=== PATIENT | female | born 1960 | race Caucasian/White ===

== ENCOUNTER → 2025-07-01 14:47 | Outpatient (REF) | payer OTHER, SELFPAY ==
[2025-07-01 16:31] LABS: Hematocrit 42.1 % (37.0-47.0); Hemoglobin 13.7 g/dL (12.0-16.0); Mean Corp Hgb Conc. 32.5 g/dL (33.0-37.0); Mean Corpuscular Volume 93.8 fL (81.0-99.0); Nucleated Red Blood Cells % 0 %; Platelet Count 241 10^3/uL (130-400); Red Cell Dist. Width 12.2 % (11.5-14.5)
[2025-07-01 16:53] LABS: Blood Urea Nitrogen 17 mg/dl (7-17); Calcium 9.5 mg/dl (8.4-10.2); Carbon Dioxide 32 mmol/L (22-30); Chloride 99 mmol/L (98-107); Glucose 99 mg/dl (70-99); Potassium 4.9 mmol/L (3.5-5.1); Sodium 138 mmol/L (135-145); eGFR > 60.00
== END ==
LOC: REG 14:47
PROVIDERS: ATTENDING PHYSICIAN Orthopaedic Surgery
DX: Z01.818 Encounter for other preprocedural examination (principal)
CPT/HCPCS: 36415; 80048; 85025; 93005

== ENCOUNTER 2025-08-06 17:09 | Inpatient (IN) | payer OTHER, SELFPAY ==
[2025-08-05] VITALS (22 sets, daily range): BP systolic 68–128; BP diastolic 42–95; BMI 24.0; BMI 23.1
--- NOTE | 2025-08-05 18:46 | ED.GENMED ---
History of Present Illness
General
Chief Complaint: Blood Pressure Problem
Time Seen by Provider: 08/05/25 18:34
History of Present Illness
History of Present Illness:
65-year-old female presents to the emergency department due to severe symptomatic orthostatic hypotension after undergoing a left total hip replacement at the outpatient surgical center this morning. She underwent 6+ hours of PACU observation with
repeated orthostasis and near syncope despite copious IV fluids (documentation does not clearly indicate amount of fluids but patient states that it was approximately 5 L). Her blood pressures are as low as 60 systolic when upright but improved
when supine. She does not take any blood pressure medication at home. She does indicate to me that she has some symptoms similar to this but not as severe on a daily basis where she gets positional lightheadedness after eating breakfast in the
morning but has never been evaluated for this. Denies any chest pain or shortness of breath.
Past History
Past History
ED Past Medical History: Other (migraines )
Review of Systems
Review of Systems
Allergies reviewed?: Yes
All Other Systems: ROS reviewed and negative except as documented in HPI and ROS
Phy Exam
Physical Exam
Physical Exam:
GEN: Pale appearing, pale, mildly diaphoretic
HEENT: Oral mucosa moist, no scleral icterus
Cardiac: Regular rate
Lung: No respiratory distress, no tachypnea
MSK: No gross deformity or injuries
Skin: Pale and diaphoretic
Neuro: AO x3, moves all extremities freely
Psych: Calm, cooperative
Course
Orders/Labs/Results
Orders:
Orders
08/05/25 Dinner
Regular
At Your Request: Limited Participation
08/05/25 18:46
Complete Blood Count/No Diff Urgent
Comprehensive Metabolic Panel Urgent
Venous Blood Gas Urgent
%Oxygen/Room Air: 99
08/05/25 19:19
Electrocardiogram (*1) Urgent
Reason for Study: QTc Monitoring
08/05/25 21:06
Admit/Transfer Patient As Directed
Co-Sign Provider:
Level of Care: Observation services
Assign to:: Telemetry
Physician / Group: devika
Diagnosis: orthostasis
Reason for Telemetry: Arrhythmia
Date to Stop Telemetry: 08/08/25
Time to Stop Telemetry: 11:00
PRN Pain Medication Management As Directed
May give lesser potent ordered pain med per pt: Yes
preference::
Protocol:: Medication orders for pain may be administered in a
manner that supports deferring to patient preference
when the pt is:
- Requesting an ordered lesser potent pain medication.
Least to most potent pain medications are defined
as: acetaminophen < NSAID < tramadol < opioids
(morphine, oxycodone, hydromorphone).
- Requesting a lesser dose of the same medication IF
ORDERED.
- Requesting a less intrusive route of administration
if both routes are prescribed by the provider (PO <
IV).
08/05/25 21:07
Code Status As Directed
Resuscitation Status: Full Code
08/05/25 21:10
Oxycodone [Roxicodone] 5 mg PO Q4HPRN PRN
08/05/25 22:00
Celecoxib [Celebrex] 100 mg PO BID
Dexamethasone [Decadron] 4 mg PO Q12
08/05/25 22:58
Midodrine [ProAmatine] 5 mg PO Q8HPRN PRN
08/05/25 22:58
Activity As Directed
Activity Level: As Tolerated
Vital Signs As Directed
Frequency: Per unit guidelines
DX Deep Vein Thrombosis Video Routine
08/06/25 00:00
Acetaminophen [Tylenol] 1,000 mg PO Q6
08/06/25 06:00
Complete Blood Count/With Diff IN AM
Comprehensive Metabolic Panel IN AM
08/06/25 08:00
Aspirin 325 mg PO DAILY
Heparin 5,000 units SC Q12
08/08/25 11:00
DC Protocol for Telemetry ONCE
Abnormal Lab Results
08/05/25
18:46
WBC 11.2 H 10^3/uL
(4.8-10.8)
RBC 3.99 L 10^6/uL
(4.20-5.40)
MCH 31.1 H pg
(27.0-31.0)
VBG pO2 67 H mmHg
(30-50)
VBG HCO3 21.6 L mmol/L
(22-27)
Sodium 129 L mmol/L
(135-145)
Glucose 158 H mg/dl
(70-99)
Calcium 7.9 L mg/dl
(8.4-10.2)
08/05/25 18:46
08/05/25 18:46
Vital Signs
Initial and Last Documented VS:
Initial Vital Signs
Temp Pulse Resp BP Pulse Ox
99.3 F 80 18 111/83 99
08/05/25 17:57 08/05/25 17:57 08/05/25 17:57 08/05/25 17:57 08/05/25 17:57
Last Documented Vital Signs
Temp Pulse Resp BP Pulse Ox
99.2 F 100 18 119/71 96
08/05/25 23:15 08/05/25 23:15 08/05/25 23:15 08/05/25 23:15 08/05/25 23:15
MDM/Problems Addressed
MDM/Problems Addressed:
Patient remains markedly orthostatic despite copious IV fluids. As she is normotensive when supine there is no indication for vasopressors. Will admit for overnight observation, hopeful that spinal anesthesia effects will wear off however patient
may have some degree of underlying orthostasis that is being exacerbated by this
*Pulse Oximetry
SaO2: 97
Oxygen Mode of Delivery: Room air
Patient hypoxic: no
*Critical Care Note
Total Time (30-74mins, 75-104mins- exclusive of procedures): Not Applicable
ED Attending Note
-
Portions of this chart may have been created with voice recognition software.� Occasional wrong word or��sound alike� substitutions may have occurred due to the inherent limitations of voice recognition software.
Discharge Plan
Departure
Patient Disposition: Admit
Date of Disposition: 08/05/25
Time of Disposition: 20:38
Admit to: Med/Surg
Presentation/result/management discussed w/ accepting MD/DO: Hospitalist
Discharge Problem:
Orthostasis
Interventions
Interventions:
*Risk Screen - Suicide Last Done: 08/05/25 23:08
*General Assessment Last Done: 08/05/25 18:43
*Neglect/Abuse Screening Last Done: 08/05/25 18:43
*ED- Fall Risk Assessment Last Done: 08/05/25 22:00
*ED COVID-19 Vaccine History Last Done: 08/05/25 23:08
*ED Influenza Vaccine History Last Done: 08/05/25 18:43
*Nursing Disposition Last Done: 08/05/25 22:57
ED- Cardiac Assessment Last Done: 08/05/25 18:43
ED- Neurological Assessment Last Done: 08/05/25 18:43
ED- Pulmonary Assessment Last Done: 08/05/25 18:43
Discharge Date and Time
Discharge Date/Time: 08/05/25 22:58
[2025-08-05 18:53] LABS: Hematocrit 37.1 % (37.0-47.0); Hemoglobin 12.4 g/dL (12.0-16.0); Mean Corp Hgb Conc. 33.4 g/dL (33.0-37.0); Mean Corpuscular Volume 93.0 fL (81.0-99.0); Platelet Count 153 10^3/uL (130-400); Red Cell Dist. Width 12.0 % (11.5-14.5)
[2025-08-05 18:55] LABS: Venous Blood Gas B.E. -3.9 mmol/L (-4 to +4); Venous Blood Gas O2 Sat % 93.9 %
[2025-08-05 19:11] LABS: ALT (SGPT) 22 U/L (0-35); AST (SGOT) 34 U/L (14-36); Albumin 3.9 g/dl (3.5-5.0); Alkaline Phosphatase 60 U/L (38-126); Blood Urea Nitrogen 11 mg/dl (7-17); Calcium 7.9 mg/dl (8.4-10.2); Carbon Dioxide 22 mmol/L (22-30); Chloride 100 mmol/L (98-107); Estimated Creatinine Clearance 90 ml/min; Glucose 158 mg/dl (70-99); Potassium 4.0 mmol/L (3.5-5.1); Sodium 129 mmol/L (135-145); Total Protein 6.4 g/dl (6.3-8.2); eGFR > 60.00
--- NOTE | 2025-08-05 20:50 | PTCARENOTE ---
Patient received from the ED and pulled over to the bed. AAOx3, vitals stable, and complains of left hip pain being a 2 at the surgical site. Oriented to room and call kumar within reach.
--- NOTE | 2025-08-05 21:11 | HPS.HSE ---
Family Physician
-
Family Physician: * NONE
Chief Complaint
-
orthostasis
History of Present Illness
65-year-old female past medical history of migraines, restless leg syndrome, presenting for low blood pressure. She underwent left total hip replacement outpatient surgical center this morning. In the PACU she had severe orthostasis with near
syncope despite copious amount of IV fluids approximately 5 L. Blood pressures lowest 60s when upright and improved when supine. She does not take any blood pressure medications at home. She never had significant anesthesia before.
She does have a history of occasional near syncope and similar symptoms with activity although very mild that she has had for over 20 years on occasion.
She has chronic abdominal pain in her left lower quadrant that is worse when she lies down. She also has chronic aching in her chest worse with exertion. She has no symptoms currently. She has never seek care for the symptoms.
She does not smoke or drink alcohol.
Medical History
Past Medical History
Past Medical History: Reports Other (migraines, restless leg syndrome,)
Past Surgical History: Reports Other (Ganglion cyst removal, left hip surgery )
Social History
Tobacco: Non-smoker
Alcohol: None
Drug: None
Family History
Family History: Not pertinent
Allergies / Home Medications
Allergies reflects when Allergies were last updated in [employer].
Home Medications with original date entered in [employer]
Allergy/Medication List:
Allergies
Allergy/AdvReac Type Severity Reaction Status Date / Time
No Known Allergies Allergy Verified 08/05/25 18:45
Home Medications
ondansetron 4 mg disintegrating tablet 4 mg PO PRN PRN migraines 04/18/23
Review of Systems
-
History Source: Patient
A 12 point ROS was completed and negative except as noted: Yes
Constitutional: Reports No Symptoms
EENT: Reports No Symptoms
Respiratory: Reports No Symptoms
Cardiac: Reports No Symptoms
Abdomen/GI: Reports No Symptoms
: Reports No Symptoms
Musculoskeletal: Reports See HPI
Skin: Reports No Symptoms
Neurological: Reports No Symptoms
Endocrine: Reports No Symptoms
Hematologic/Lymphatic: Reports No Symptoms
Psych: Reports No Symptoms
Physical Exam
Vital Signs
Vital Signs
Temp Pulse Resp BP Pulse Ox
99.3 F 74 19 119/78 97
08/05/25 17:57 08/05/25 20:45 08/05/25 20:45 08/05/25 20:45 08/05/25 20:15
Physical Exam
General: Well Developed, Well Nourished and No Apparent Distress
HEENT: NormoCephalic, Moist mucous membranes and Atraumatic
Respiratory: Clear
Cardiac: S1/S2 and Regular Rhythm; No Murmur or Rub
GI: Soft, Non Tender, Non Distended and Normal Bowel Sounds; No Organomegaly
Rectal: Deferred by Provider
Musculoskeletal: No Clubbing, No Cyanosis and No Edema
Skin: No Rash
Neuro: Nonfocal/grossly intact
Laboratory Results
-
08/05/25 18:46
08/05/25 18:46
Laboratory Results
Total Bilirubin 0.8 mg/dl (0.2-1.3) 08/05/25 18:46
AST 34 U/L (14-36) 08/05/25 18:46
ALT 22 U/L (0-35) 08/05/25 18:46
Alkaline Phosphatase 60 U/L (38-126) 08/05/25 18:46
Data Reviewed
-
Lab Data: Labs Reviewed by me
Old Records: Reviewed
Impression/Plan
-
IMPRESSION:
PLAN:
# Severe orthostasis after anesthesia for left hip total replacement today
-Received close to 5 L of fluids in the surgical center prior to arrival today
-EKG shows normal sinus rhythm,
- Blood pressure 120s while supine and drops to 60s with sitting up
- As needed midodrine
Left total hip replacement today
- Start aspirin 325 mg for DVT prophylax as instructed by orthopedic
- Start dexamethasone 4 mg twice twice daily
- Tylenol 1000 mg every 6 hours, Celebrex 100 mg every 12 hours, oxycodone 5 mg every 6 hours
Chronic chest achiness
- Patient not concerned about this since chronic
Chronic left lower quadrant abdominal pain
- Patient not concerned about this is chronic
History of migraines
Restless leg syndrome
Full code
DVT prophylaxis�heparin
Regular diet
[2025-08-05 22:42] LABS: Urine Character Clear (Clear)
[2025-08-05 22:51] LABS: Urine Red Blood Cell 0-2 /HPF (0-2); Urine White Cell 0-2 /HPF (0-5)
[2025-08-06] VITALS (9 sets, daily range): BP systolic 81–143; BP diastolic 42–82; PULSE 70–82
[2025-08-06] MEDS: TYLENOL 1000 MG PO ×4 (00:17→17:06)
[2025-08-06] MEDS: CELEBREX 100 MG PO ×3 (00:18→19:56)
[2025-08-06] MEDS: DECADRON 4 MG PO ×2 (00:18→09:04)
[2025-08-06] MEDS: ASPIRIN 325 MG PO (09:04)
[2025-08-06 09:10] LABS: Hematocrit 34.6 % (37.0-47.0); Hemoglobin 11.2 g/dL (12.0-16.0); Mean Corp Hgb Conc. 32.4 g/dL (33.0-37.0); Mean Corpuscular Volume 94.3 fL (81.0-99.0); Nucleated Red Blood Cells % 0 %; Platelet Count 158 10^3/uL (130-400); Red Cell Dist. Width 12.2 % (11.5-14.5)
[2025-08-06 09:48] LABS: ALT (SGPT) 18 U/L (0-35); AST (SGOT) 32 U/L (14-36); Albumin 3.3 g/dl (3.5-5.0); Alkaline Phosphatase 56 U/L (38-126); Blood Urea Nitrogen 11 mg/dl (7-17); Calcium 7.8 mg/dl (8.4-10.2); Carbon Dioxide 23 mmol/L (22-30); Chloride 98 mmol/L (98-107); Estimated Creatinine Clearance 77 ml/min; Glucose 84 mg/dl (70-99); Potassium 4.0 mmol/L (3.5-5.1); Sodium 128 mmol/L (135-145); Total Protein 5.7 g/dl (6.3-8.2); eGFR > 60.00
--- NOTE | 2025-08-06 11:49 | CM ---
Addendum entered by Cesar Garcia 08/06/25 15:36:
Therapy rec home PT, [facility] will resume services at d/c. [facility] referral in [facility]
Original Note:
Patient seen bedside w/ spouse, initial assessment completed. Patient is a 65-year-old female past medical history of migraines, restless leg syndrome, presenting for low blood pressure. Patient underwent left total hip replacement outpatient
surgical center this morning.
Patient resides w/ spouse in a 2STH, 5 steps to enter from the outside. Patient was prev independent w/ ambulation, however, following hip replacement, patient will have a RW and cane. Patient stated she has a suction grab bar but hasn't installed
it yet. Denies SNF hx. Current w/ [facility] for PT. Patient also goes to OP PT at [facility] 2x/week.
Address, point of contact and insurance verified
PCP: Lenore Goodman
Pharmacy: [facility]
Patient admitted under obs services. OOBS form verbally reviewed, copy provided, copy on chart
PT/OT ordered, will review recommendations
Plan: Await PT/OT
--- NOTE | 2025-08-06 11:49 | W.PN.UPDATE ---
Update Note
Progress Note Update
Currently Afeb. VSS. Patient presented to the [facility] yesterday after outpatient LEFT [facility]ENN[facility] ([facility]) with significant orthostatics upon returning home. at bedside. Patient feeling well in bed, but still symptomatic when rising. Appreciate the
efforts of the primary team at this time. Left hip bandage CDI. No strikethrough. Calf soft, nontender. DNVI LLE. May work with PT/OT if able and medically safe. WBAT B/L LEs on walker. THPs. Will follow peripherally. Please reach out as needed.
--- NOTE | 2025-08-06 13:13 | PTCARENOTE ---
Pt extremely orthostatic this am, was unable to stand for more than 1 minute and was lightheaded and nauseated. L-111/71, sit-108/63 st-81/42. Pt then given Midodrine 5mg po and B/P after this was L-131/70, sit-143/79, st 131/82. Pt was able to get
OOB with therapy, use the BSC, walk to the door and sit up for lunch. Pt tolerated well.
[2025-08-06 14:37] LABS: Troponin I < 0.012 ng/ml
[2025-08-06 14:58] LABS: Cortisol, Random 7.2 ug/dl
--- NOTE | 2025-08-06 17:09 | W.PN.HOSP.TC ---
Today's Communication/Plan
-
echo performed, WNL
w/u hyponatremia
supportive measures for orthostatic hypotension
Assessment / Plan
Assessment / Plan
65F with RLS, left THR on 08/05, presenting from PACU at outpatient surgical center for orthostatic hypotension, symptomatic, unresponsive to IV fluid.
Severe orthostasis
after anesthesia for left hip total replacement 08/05
-Received close to 5 L of fluids in the surgical center prior to arrival to ED. Will hold off ordering more volume. Pt is eating and drinking
Hgb stable
-EKG shows normal sinus rhythm. Troponin negative.
echo performed, no RWMA, normal EF
- Blood pressure 120s while supine and drops to 60s with sitting up
- start midodrine, abdominal binder when sitting or standing
Hyponatremia
Na 128 after 5L IVF
random cortisol wnl
check TSH
check UA/U Na/UOsm, Serum Osm
Left total hip replacement
PT/OT
routine post op care
- Start aspirin 325 mg for DVT prophylax as instructed by orthopedic
- Tylenol 1000 mg every 6 hours, Celebrex 100 mg every 12 hours, oxycodone 5 mg every 6 hours
Chronic chest achiness
- Patient not concerned about this since chronic
EKG NSR
echo is WNL
outpt f/u with cards
Chronic left lower quadrant abdominal pain
- Patient not concerned about this is chronic
Full code
DVT prophylaxis�asa 325mg
Anticipated Discharge: 24 - 48 hours
Subjective/Interval History
-
Date of Service: August 06, 2025
Patient seen in a.m., was feeling fine at rest, however became very sweaty, feeling poorly when sitting upright, orthostatic vital signs were positive. Denied lightheadedness or SOB. Did note on chronically has some aching in the chest and abd
which she does not think much of and is not worsened by sitting up. is at bedside
Objective Data
-
Labs:
Laboratory Results
08/06/25
07:43
WBC 9.5
Hgb 11.2 L
Hct 34.6 L
Plt Count 158
Sodium 128 L
Potassium 4.0
Chloride 98
Carbon Dioxide 23
BUN 11
Creatinine 0.7
Glucose 84
Calcium 7.8 L
Total Bilirubin 0.8
AST 32
ALT 18
Alkaline Phosphatase 56
Vital Signs:
Vital Signs
Temp Pulse Resp BP Pulse Ox
98.8 F 65 18 121/75 96
08/06/25 14:58 08/06/25 14:58 08/06/25 14:58 08/06/25 14:58 08/06/25 14:58
I&O
08/05/25 08/06/25 08/07/25
06:59 06:59 06:59
Intake Total 480 / 480
Output Total 1320 / 1320
Balance -840 / -840
Review of Systems
-
All other systems: Reviewed and negative
Physical Exam
-
General: No Apparent Distress
HEENT: Moist Mucous Membranes, Anicteric and PERRLA
Respiratory: Clear to Auscultation; Negative Wheezes, Rales or Rhonchi
Cardiac: Regular Rhythm and S1/S2; Negative Murmur, Rub or Gallop
GI: Soft, Nontender, Nondistended and Normal Bowel Sounds
Musculoskeletal: No Edema and Other (Left thigh dressing clean dry and intact)
Skin: Warm and Dry; Negative Rash, Ulcers or Lesions
Neuro: Awake and AO x 3
Hematologic / Lymphatic: No Lymphadenopathy
Psych: Calm
Data Reviewed
-
Labs: Labs Reviewed by me, Discussed with Patient and Discussed with Family
[2025-08-06 18:38] LABS: Urine Character Clear (Clear)
[2025-08-06 19:28] LABS: Urine Squamous Cell >30 /LPF (Few)
[2025-08-07] MEDS: TYLENOL PO (01:33)
[2025-08-07 02:59] VITALS: BP 128/76
[2025-08-07] MEDS: TYLENOL 1000 MG PO ×2 (05:38→11:51)
[2025-08-07 07:00] VITALS: BP 141/85
[2025-08-07] MEDS: ASPIRIN 325 MG PO (07:45)
[2025-08-07] MEDS: CELEBREX 100 MG PO (07:45)
[2025-08-07 08:20] LABS: Hematocrit 32.0 % (37.0-47.0); Hemoglobin 10.7 g/dL (12.0-16.0); Mean Corp Hgb Conc. 33.4 g/dL (33.0-37.0); Mean Corpuscular Volume 92.8 fL (81.0-99.0); Platelet Count 152 10^3/uL (130-400); Red Cell Dist. Width 12.5 % (11.5-14.5)
[2025-08-07 09:15] LABS: ALT (SGPT) 16 U/L (0-35); AST (SGOT) 30 U/L (14-36); Albumin 3.1 g/dl (3.5-5.0); Alkaline Phosphatase 55 U/L (38-126); Blood Urea Nitrogen 11 mg/dl (7-17); Calcium 8.3 mg/dl (8.4-10.2); Carbon Dioxide 26 mmol/L (22-30); Chloride 102 mmol/L (98-107); Estimated Creatinine Clearance 90 ml/min; Glucose 80 mg/dl (70-99); Potassium 4.1 mmol/L (3.5-5.1); Sodium 133 mmol/L (135-145); Total Protein 5.5 g/dl (6.3-8.2); eGFR > 60.00
[2025-08-07 09:55] VITALS: BP 131/80; BP 138/84; BP 149/89; PULSE 69; PULSE 70; PULSE 76
[2025-08-07 10:24] VITALS: BP 120/81; BP 131/80; BP 138/84; BP 149/89; PULSE 69; PULSE 72; PULSE 76; O2SAT 97
[2025-08-07 11:00] VITALS: BP 112/76
--- NOTE | 2025-08-07 11:00 | W.DCSUMMARY ---
Discharge Summary
Discharge Data
Date of Admission: 08/06/25
Date of Discharge: 08/07/25
Total time spent discharging patient (in min): 31
-
Pending Results: No
Hospital Course
Attending physician on day of discharge:
Sheeba Berry MD
Admission/discharge diagnosis:
Orthostatic hypotension
Secondary diagnoses:
Hyponatremia
Anemia
S/p left THR
Consultations:
Orthopedic surgery
Procedures:
None
Hospital course:
65F presented after left THR at outpatient center, in PACU had severe orthostatic hypotension not responding to 5L IV fluids given at the PACU. She was admitted and orthopedic surgery was consulted. Orthostatic vital signs were trended, she
remained orthostatic for 1 day and received 1 dose of midodrine, however it eventually resolved on its own and patient was able to sit and work with PT without orthostatic hypotension or symptoms. She was given abdominal binder and advised about
compression hose use. Echocardiogram was performed which was WNL. On admission her hemoglobin was stable, however was noted to be down to 10.7 on day of discharge, patient was advised to follow-up with her PCP for recheck. She also presented with
a low sodium, that did resolve, urine sodium was 20, with normal osm, cortisol and TSH were within normal limits.
Diagnostic Findings:
Echo:
SUMMARY
1. Normal biventricular size and function without regional wall motion abnormalities.
2. LVEF is 60-65% by visual estimation. Normal diastolic function.
3. No significant valve disease. Normal estimated PASP at 19 mmHg.
4. No prior study available for comparison
Physical exam on discharge:
Gen: NAD
HEENT: PERRLA, EOMI, MMM, neck supple
Cards: RRR, no M/G/R
Resp: Lungs CTAB, no W/R/R
GI: soft, NT/ND/NABS
MSK: No edema
Skin: warm and dry, no rash, ulcer or lesions
Heme: No LAD
Psych: Calm
Neuro: AAOx3
Discharge disposition:
Home with C
Discharge Plan
-
Patient Disposition: Home with Home Care
Discharge Diagnosis/Procedures: Orthostatic Hypotension
Diet: Regular
Activity: As tolerated
Driving Restrictions: No driving
Bathing Restrictions: as per orthopedic surgery team
Blood Work: have your PCP recheck BMP, CBC
Other Services: VN, PT and OT
Wound Care: as per orthopedic surgery team
Instructions: Orthostatic hypotension
Referrals:
NONE,* [Family Provider, Internal Medicine]
Phoenix Syed MD [Active, Orthopedics]
Additional Discharge Medication Instructions: See your primary care physician with one week. Get repeat blood work for your sodium and hemoglobin. These dropped after surgery but that is not uncommon and should normalize. Take all post op meds as
prescribed by your orthopedic surgery team. Get up slowly, and you can use your abomdinal binder and compression stockings when working with PT to avoid orthostatic hypotension, and can stop using it if your blood pressure doesn't drop.
Prescriptions:
Discontinued
ondansetron [Zofran ODT] 4 mg Tablet,Disintegrating
4 mg PO PRN PRN (Reason: migraines)
Patient Comments:
Pt states it has been 'several weeks' since last taken
Discharge Orders:
Discharge Patient (As Directed); Ordered 08/07/25
Ordered By: Sheeba Berry
Discharge Date and Time
Print Language: LITHUANIAN
[2025-08-07 11:52] VITALS: BP 101/75; BP 126/76
--- NOTE | 2025-08-07 12:36 | CM ---
CM reviewed chart, patient seen with spouse, for d/c today.
Update to [facility]- aware of d/c today- SOC not same day, patient aware.
Patient confirms transport home.
CM will continue to follow for all d/c planning needs.
Plan; home with [facility]
== END 2025-08-07 14:46 | disposition home health service (06) | DRG 312 ==
LOC: 4 WEST ACU 17:09
PROVIDERS: Physician Assistant; ADMITTING PHYSICIAN Hospitalist; ATTENDING PHYSICIAN Internal Medicine; EMERGENCY PHYSICIAN Emergency Medicine
DX: I95.2 Hypotension due to drugs (principal); E87.1 Hypo-osmolality and hyponatremia; R10.32 Left lower quadrant pain; D64.9 Anemia, unspecified; Z96.642 Presence of left artificial hip joint; G89.29 Other chronic pain; T41.45XA Adverse effect of unspecified anesthetic, initial encounter
CPT/HCPCS: 80053; 81003; 81015; 82533; 82805; 83930; 83935; 84300; 84443; 84484; 85025; 85027; 93005; 93306; 97163; 97167; 97530; 97535; 99285

== ENCOUNTER → 2025-08-15 08:31 | Outpatient (REF) | payer OTHER, SELFPAY ==
[2025-08-15 10:26] LABS: Hematocrit 37.7 % (37.0-47.0); Hemoglobin 12.0 g/dL (12.0-16.0); Mean Corp Hgb Conc. 31.8 g/dL (33.0-37.0); Mean Corpuscular Volume 97.2 fL (81.0-99.0); Platelet Count 277 10^3/uL (130-400); Red Cell Dist. Width 13.2 % (11.5-14.5)
[2025-08-15 10:33] LABS: ALT (SGPT) 39 U/L (0-35); AST (SGOT) 34 U/L (14-36); Albumin 3.9 g/dl (3.5-5.0); Alkaline Phosphatase 61 U/L (38-126); Blood Urea Nitrogen 16 mg/dl (7-17); Calcium 8.8 mg/dl (8.4-10.2); Carbon Dioxide 31 mmol/L (22-30); Chloride 95 mmol/L (98-107); Glucose 80 mg/dl (70-99); Potassium 4.8 mmol/L (3.5-5.1); Sodium 128 mmol/L (135-145); Total Protein 6.7 g/dl (6.3-8.2); eGFR > 60.00
[2025-08-15 11:54] LABS: Nucleated Red Blood Cells % 0 %
== END ==
LOC: REG 08:31
PROVIDERS: ATTENDING PHYSICIAN Nurse Practitioner Family; FAMILY PHYSICIAN Internal Medicine
DX: D64.9 Anemia, unspecified (principal); E87.1 Hypo-osmolality and hyponatremia
CPT/HCPCS: 36415; 80053; 85025